=== PATIENT | female | born 1960 | race Caucasian/White ===

== ENCOUNTER 2016-11-01 19:13 | Emergency (ER) | payer OTHER ==
[~2016-11-01] VITALS: Ht 170.2 cm; Wt 80.7 kg
--- NOTE | 2016-11-01 19:47 | ER.PDOC ---
General Chief Complaint: Skin Rash/Abscess Stated Complaint: SPIDER BITE Time seen by MD: 19:45 Source: patient Exam Limitations: no limitations History of Present Illness Initial Comments Insect bite to left arm yesterday with area looking red. Severity: mild Identified Cause: possibly Past Medical History Medical History: diabetes Surgical History: , tubal Social History Smoking: non-smoker Alcohol Use: occassionally Drug Use: none Constitutional: no symptoms reported Respiratory: no symptoms reported Cardiovascular: no symptoms reported Gastrointestinal: no symptoms reported Genitourinary: no symptoms reported Skin: see HPI All Other Systems: Reviewed and Negative Physical Exam General Appearance: alert, no distress Location: LUE (arm) Character: erythematous EENT: eyes nml inspection, lips/gums nml, pharynx nml Neck: trachea midline, no swelling CVS: reg. rate & rhythm, heart sounds nml Abdomen: non-tender, no organomegaly NEURO/PSYCH: oriented x 3, CN's nml as tested, motor nml, sensation nml, mood/ affect nml Departure Time of Disposition: 19:46 Disposition: 01 HOME, SELF-CARE Impression: Primary Impression: Insect bites Qualified Codes: W57.XXXA - Bitten or stung by nonvenomous insect and other nonvenomous arthropods, initial encounter Condition: Stable Referrals: PCP,UNKNOWN (PCP) PRIMARY CARE PROVIDER Additional Instructions: Keflex F/U with your PCP in 2-3 days TIESHA ETIENNE MD Nov 01, 2016 19:47
[2016-11-01 19:51] VITALS: BP 111/61
== END 2016-11-01 19:50 | disposition home or self-care (01) ==
LOC: ER 19:13
DX: S40.862A Insect bite (nonvenomous) of left upper arm, initial encounter (principal); E11.9 Type 2 diabetes mellitus without complications; W57.XXXA Bitten or stung by nonvenomous insect and other nonvenomous arthropods, initial encounter; Y93.89 Activity, other specified; Y92.89 Other specified places as the place of occurrence of the external cause; Y99.8 Other external cause status
CPT/HCPCS: 99283